=== PATIENT | male | born 1950 | race Caucasian/White ===

== ENCOUNTER 2020-12-13 09:17 | Observation (INO) ==
[2020-12-13] MEDS ORDERED: SODIUM CHLORIDE 0.9% 1,000 ML IV STA (09:36)
[2020-12-13] MEDS ORDERED: ONDANSETRON 4 MG/2 ML VIAL ONE (10:03)
[2020-12-13] MEDS ORDERED: ONDANSETRON 4 MG/2 ML VIAL IV STA ×2 (10:03→10:04)
[2020-12-13] MEDS ORDERED: ACETAMINOPHEN 500 MG TABLET PO STA (10:22)
[2020-12-13 10:28] LABS: Basophils % 0.4 % (0.0-0.8); Eosinophils # 0.2 10*3/uL (0.0-0.87); Eosinophils % 2.2 % (0.00-10.9); Hematocrit 40.1 VOL% (42.0-52.0); Hemoglobin 13.6 GM/DL (14.0-18.0); Immature Granulocytes % 0.4 %; Immature Granulocytes Absolute 0.03 #; Lymphocytes # 1.1 10*3/uL (1.4-4.0); Lymphocytes % 15.2 % (21.2-54.2); Mean Corpuscular HGB Conc 33.9 GM/DL (32-36); Mean Corpuscular Volume 94.8 FL (87-102); Mean Platelet Volume 8.9 FL (9.6-12.0); Neutrophils % 71.8 % (38.7-73.9); Platelet Count 215 T/CUMM (130-400); Red Blood Count 4.23 MC/CUMM (3.8-5.5); Red Cell Distribution Width 12.5 % (9.3-17.3); White Blood Count 7.4 T/CUMM (4-12)
[2020-12-13 10:35] LABS: PT Patient Result 11.1 SECS (9.8-11.9)
[2020-12-13 10:47] LABS: Alanine Aminotransferase 95 U/L (16-61); Albumin 3.6 G/DL (3.4-5.0); Alkaline Phosphatase 75 U/L (45-117); Aspartate Amino Transferase 95 U/L (0-37); Blood Urea Nitrogen 15 MG/DL (7-18); Calcium 8.8 MG/DL (8.5-10.1); Carbon Dioxide 23 MMOL/L (21-32); Estimated Glom Filtration Rate 88 ML/MIN; Glucose 111 MG/DL (74-106); Osmolality,Calculated 271.1 MOS/KG (273-304); Potassium 4.1 MMOL/L (3.5-5.1); Sodium 135 MMOL/L (136-145); Total Protein 7.3 G/DL (5.0-7.5)
[2020-12-13 11:13] LABS: Bilirubin,Urine Negative (Negative); Blood, Urine Negative (Negative); Glucose,Urine (UA) Negative (Negative); Ketones,Urine Negative (Negative); Mucus,Urine Occasional /LPF (Occasional); Nitrite,Urine Negative (Negative); Protein,Urine 30 MG/DL; RBC,Urine 1 /HPF (0-4); Urine Appearance CLEAR (Clear); Urine Color Yellow (Yellow); Urine Specific Gravity 1.023 (1.001-1.035); Urine Urobilinogen < 2.0 EU/DL (0.2-1.0)
[2020-12-13] MEDS ORDERED: GENTAMICIN INJ 140 MG in SODIUM CHLORIDE 0.9% 100 ML IV STA (11:17)
[2020-12-13] MEDS ORDERED: GENTAMICIN 80 MG/2 ML VIAL ONE (11:43)
[2020-12-13] MEDS ORDERED: ONDANSETRON 4 MG/2 ML VIAL IV PRN (11:58)
[2020-12-13] MEDS ORDERED: GLUCAGON 1 MG VIAL IM PRN (11:58)
[2020-12-13] MEDS ORDERED: hydrALAZINE 20 MG/1 ML VIAL IV PRN (11:58)
[2020-12-13] MEDS ORDERED: DEXTROSE 50% 25 GM/50 ML VIAL IV PRN (11:58)
[2020-12-13] MEDS ORDERED: SODIUM CHLORIDE 0.9% 1,000 ML IV SCH (12:00)
[2020-12-13] MEDS ORDERED: CETIRIZINE 10 MG TABLET PO PRN (12:21)
[2020-12-13 13:35] LABS: Thyroid Stimulating Hormone 0.729 uIU/ml (0.358-3.74); VLDL CHOLESTEROL 36.8 MG/DL
[2020-12-13] MEDS: ENOXAPARIN 40 MG/0.4 ML SYRINGE SUBCUT SCH (13:40)
[2020-12-13] MEDS: methylPREDNISolone SOD SUC 40 MG/1 ML VIAL IV SCH ×2 (13:40→20:51)
[2020-12-13] MEDS ORDERED: ACETAMINOPHEN 325 MG TABLET PO PRN (14:54)
[2020-12-13] MEDS: FAMOTIDINE 20 MG TABLET PO SCH (20:51)
[2020-12-14 04:16] LABS: Basophils % 0.2 % (0.0-0.8); Hematocrit 40.4 VOL% (42.0-52.0); Hemoglobin 13.4 GM/DL (14.0-18.0); Immature Granulocytes % 0.8 %; Immature Granulocytes Absolute 0.09 #; Lymphocytes # 1.3 10*3/uL (1.4-4.0); Lymphocytes % 11.4 % (21.2-54.2); Mean Corpuscular HGB Conc 33.2 GM/DL (32-36); Mean Corpuscular Volume 96.2 FL (87-102); Mean Platelet Volume 9.4 FL (9.6-12.0); Monocytes % 2.4 % (1.7-12.7); Neutrophils % 85.2 % (38.7-73.9); Platelet Count 207 T/CUMM (130-400); Red Cell Distribution Width 12.1 % (9.3-17.3)
[2020-12-14 04:43] LABS: Albumin 3.4 G/DL (3.4-5.0); Bilirubin,Total 0.7 MG/DL (0.2-1.0); Calcium 8.8 MG/DL (8.5-10.1); Osmolality,Calculated 276.8 MOS/KG (273-304); Total Protein 7.8 G/DL (5.0-7.5)
[2020-12-14 05:22] LABS: Hypochromasia 1+; Platelet Estimate Normal
[2020-12-14] MEDS: methylPREDNISolone SOD SUC 40 MG/1 ML VIAL IV SCH ×3 (05:52→21:35)
[2020-12-14] MEDS: FAMOTIDINE 20 MG TABLET PO SCH ×2 (08:05→21:35)
[2020-12-14] MEDS ORDERED: PANTOPRAZOLE 40 MG TABLET PO SCH (09:00)
[2020-12-14] MEDS ORDERED: KRILL OIL 500 MG PO SCH (09:00)
[2020-12-14] MEDS: EZETIMIBE 10 MG TABLET PO SCH (10:03)
[2020-12-14] MEDS: MULTIVITAMIN (OCUVITE) TABLET PO SCH ×2 (10:04→21:34)
[2020-12-14] MEDS: atenoloL 25 MG TABLET PO SCH ×2 (10:04→21:36)
[2020-12-14] MEDS: ASPIRIN 325 MG TABLET PO SCH (10:04)
[2020-12-14] MEDS: MOXIFLOXACIN 0.5% OPH SOLN 3 ML BOTTLE LEFT EYE SCH ×4 (10:41→21:38)
[2020-12-14] MEDS: prednisoLONE ACETATE 1% OPH SUSP 5 ML BOTTLE LEFT EYE SCH ×4 (10:41→21:39)
[2020-12-14] MEDS: ENOXAPARIN 40 MG/0.4 ML SYRINGE SUBCUT SCH (12:20)
[2020-12-14] MEDS: gemfibroziL 600 MG TABLET PO SCH (17:35)
[2020-12-14] MEDS: prednisoLONE ACETATE 1% OPH SUSP 5 ML BOTTLE RIGHT EYE SCH (17:36)
[2020-12-14] MEDS: MOXIFLOXACIN 0.5% OPH SOLN 3 ML BOTTLE RIGHT EYE SCH (17:36)
[2020-12-14] MEDS ORDERED: NIACIN ER 500 MG TABLET PO SCH (21:00)
[2020-12-14] MEDS ORDERED: ROSUVASTATIN 10 MG TABLET PO SCH (21:00)
[2020-12-15 05:44] LABS: Basophils % 0.1 % (0.0-0.8); Hematocrit 35.7 VOL% (42.0-52.0); Hemoglobin 12.2 GM/DL (14.0-18.0); Immature Granulocytes % 0.8 %; Immature Granulocytes Absolute 0.21 #; Lymphocytes # 1.9 10*3/uL (1.4-4.0); Lymphocytes % 7.5 % (21.2-54.2); Mean Corpuscular HGB Conc 34.2 GM/DL (32-36); Mean Corpuscular Volume 94.2 FL (87-102); Mean Platelet Volume 9.6 FL (9.6-12.0); Monocytes % 5.1 % (1.7-12.7); Neutrophils % 86.5 % (38.7-73.9); Platelet Count 215 T/CUMM (130-400); Red Blood Count 3.79 MC/CUMM (3.8-5.5); Red Cell Distribution Width 12.5 % (9.3-17.3); White Blood Count 25.1 T/CUMM (4-12)
[2020-12-15 06:00] LABS: Albumin 3.1 G/DL (3.4-5.0); Bilirubin,Total 0.5 MG/DL (0.2-1.0); Calcium 8.3 MG/DL (8.5-10.1); Osmolality,Calculated 286.3 MOS/KG (273-304); Potassium 4.3 MMOL/L (3.5-5.1); Total Protein 6.9 G/DL (5.0-7.5)
[2020-12-15 06:08] LABS: Band Neutrophils 1 % (0-10); Hypochromasia 1+; Lymphocytes 4 % (20-55); Microcytosis 1+; Platelet Estimate Adequate; Segmented Neutrophils 90 % (50-85); Total Cells Counted 100
[2020-12-15] MEDS: methylPREDNISolone SOD SUC 40 MG/1 ML VIAL IV SCH (06:43)
[2020-12-15 08:20] VITALS: BP 112/74
[2020-12-15] MEDS: FAMOTIDINE 20 MG TABLET PO SCH (09:14)
[2020-12-15] MEDS: MULTIVITAMIN (OCUVITE) TABLET PO SCH (09:14)
[2020-12-15] MEDS: atenoloL 25 MG TABLET PO SCH (09:14)
[2020-12-15] MEDS: EZETIMIBE 10 MG TABLET PO SCH (09:14)
[2020-12-15] MEDS: prednisoLONE ACETATE 1% OPH SUSP 5 ML BOTTLE RIGHT EYE SCH (09:15)
[2020-12-15] MEDS: gemfibroziL 600 MG TABLET PO SCH (09:15)
[2020-12-15] MEDS: ASPIRIN 325 MG TABLET PO SCH (09:15)
[2020-12-15] MEDS: MOXIFLOXACIN 0.5% OPH SOLN 3 ML BOTTLE LEFT EYE SCH (09:16)
[2020-12-15] MEDS: MOXIFLOXACIN 0.5% OPH SOLN 3 ML BOTTLE RIGHT EYE SCH (09:16)
[2020-12-15] MEDS: prednisoLONE ACETATE 1% OPH SUSP 5 ML BOTTLE LEFT EYE SCH (09:16)
== END 2020-12-15 12:50 | disposition home or self-care (01) ==
LOC: N.ED 09:17 → N.EDINP 09:17 → N.3E 13:51
PROVIDERS: ADMIT Internal Medicine; ATTEND Internal Medicine